=== PATIENT | male | born 1990 | race Caucasian/White ===

== ENCOUNTER 2022-11-03 21:23 | Emergency (ER) | payer OTHER ==
[~2022-11-03] VITALS: Ht 175.3 cm; Wt 104.3 kg
[2022-11-03] MEDS ORDERED: Amoxicillin875 MG PO (22:01)
== END 2022-11-03 22:10 | disposition home or self-care (01) ==
LOC: ER 21:23
DX: H66.91 Otitis media, unspecified, right ear (principal); Z72.0 Tobacco use
CPT/HCPCS: 99282; A9270

== ENCOUNTER 2023-07-28 11:14 | Emergency (ER) | payer OTHER ==
[~2023-07-28] VITALS: Ht 175.3 cm; Wt 104.3 kg
[~2023-07-28 11:14] MED LIST: Amoxicillin875 MG PO
[2023-07-28 11:35] VITALS: BP 144/82
== END 2023-07-28 12:42 | disposition home or self-care (01) ==
LOC: ER 11:14
DX: L73.9 Follicular disorder, unspecified (principal)
CPT/HCPCS: 99283